=== PATIENT | female | born 1985 | race African-American/Black ===

== ENCOUNTER → 2016-12-29 | Outpatient (CLI) | payer OTHER ==
[~2016-12-29] MED LIST: ALBUTEROL17 GM; AMITRIPTYLINE100 MG PO; BACTRIM DS TABL1 TA2 PO; CLARITIN5 MG; FERROUS SULFATE PO; FLEXERIL10 MG PO; IRON1 TAB; K-DUR20 ME2 PO; PYRIDIUM PO; QVAR7.3 G1; ZYRTEC
--- NOTE | ~2016-12-29 | TH ---
Unit #: [id number] #: [id number] Patient: CARLITOS JACKSON [id number] [address] [address] [id number] O MR#: [id number] NAME: CARLITOS JACKSON : 1985 SEX: F STUDY DATE/TIME: 12/29/2016 UNIT: CN ROOM: STUDY DESCRIPTION: Ex. stress Cardiolite Attending Physician: Kim Emerson M.D. Referring Physician: Kim Emerson M.D. Primary Care Physician: [facility] CARDIOLOGY REPORT EXAM Exercise Cardiolite stress test, nuclear portion. PROCEDURE Using technetium 99M labeled Cardiolite, rest and stress SPECT images were obtained. Multiple SPECT images were obtained in various views including horizontal and vertical long axis and short axis views of the left ventricle. Images were obtained by gated SPECT method. Patient was administered 12 mCi of Cardiolite at rest. Patient was administered 34.6 mCi of Cardiolite at peak exercise. Total exercise time is 9 minutes. On the stress images, there is normal perfusion noted. The rest images show normal perfusion. Comparing rest and stress images, there is no stress induced ischemia noted. The left ventricular ejection fraction is calculated to be 68%. There is no focal wall motion abnormality seen. CONCLUSION 1. No stress induced ischemia noted. 2. The left ventricular ejection fraction is calculated to be 68%. 3. There is no focal wall motion abnormality seen. 4. Normal exercise Cardiolite stress test. Dictated by... Justin Jauregui/mark TD: 12/29/2016 10:32 JOB #: [id number] CARDIOLOGY REPORT Page 1 of 1 X Kim Emerson MD <ELECTRONICALLY SIGNED> 01/20/17 1524 CARDIOLOGY REPORT
--- NOTE | ~2016-12-29 | ST ---
Unit #: [id number] #: [id number] Patient: CARLITOS JACKSON [id number] [address] [address] [id number] O MR#: [id number] NAME: CARLITOS JACKSON : 1985 SEX: F STUDY DATE/TIME: 12/29/2016 UNIT: CN ROOM: STUDY DESCRIPTION: Stress test Attending Physician: Kim Emerson M.D. Referring Physician: Kim Emerson M.D. Primary Care Physician: Michelle [facility] CARDIOLOGY REPORT REASON FOR TEST Chest pain and shortness of breath. PROCEDURE Baseline EKG - Sinus rhythm, rate of 77 beats per minute. The patient exercised on the treadmill according to Angel protocol for a total of 8 minutes, 59 seconds, achieving 10.4 METS with a resting heart rate of 77 beats per minute and a peak heart rate of 169 beats per minute, representing 89% of the maximum predicted heart rate. There were no ST segment changes noted suggestive of ischemia. The patient denied any complaints of chest pain or pressure throughout the testing period. She did report mild shortness of breath, which increased at peak exercise. There was no ectopy. The test was stopped secondary to target heart rate achieved, increasing shortness of breath and fatigue. FINDINGS 1. Negative EKG portion of exercise Cardiolite. 2. No ST-T wave changes suggestive of ischemia. 3. The patient denied any complaints of chest pain, pressure or tightness throughout the testing period. She did have increasing shortness of breath, which occurred at peak exertion. This resolved in the recovery period. 4. There was no ectopy noted. 5. The patient had a normal blood pressure response to exercise. 6. Please correlate with nuclear images. Dictated by... Ana Paula Robertson A.P.R.N. for Kim Emerson M.D. LMW/db TD: 12/29/2016 10:40 JOB #: [id number] Unit #: [id number] #: [id number] Patient: CARLITOS JACKSON CARDIOLOGY REPORT Page 1 of 1 X Ana Paula Robertson APRN CARDIOLOGY REPORT
== END | disposition home or self-care (01) ==
LOC: CNUC 07:19
DX: R07.9 Chest pain, unspecified (principal)
CPT/HCPCS: 78452; 93017; A9500